=== PATIENT | female | born 1990 | race African-American/Black ===

== ENCOUNTER 2020-10-24 00:47 | Inpatient (IN) | payer BC ==
[2020-10-24] MEDS ORDERED: CLINDAMYCIN 900 MG PREMIX IVPB 900 MG/50 ML BAG IVPB ONE (02:02)
[2020-10-24] MEDS: CLINDAMYCIN 900 MG PREMIX IVPB 900 MG/50 ML BAG IVPB SCH ×3 (02:04→18:00)
[2020-10-24 02:11] LABS: BASO % 0.3 % (0-2.0); HEMATOCRIT 34.7 % (32.4-45.2); HEMOGLOBIN 11.5 GM/dL (10.7-15.3); LYMPH % 33.8 % (8-40); MCH 28.8 pg (25.7-33.7); MCHC 33.1 g/dl (32.0-36.0); MEAN CELL VOLUME 86.9 fl (80-96); MEAN PLT VOLUME 10.6 fl (7.5-11.1); MONO % 9.4 % (3.8-10.2); NEUT % 55.5 % (42.8-82.8); PLATELET COUNT 231 K/MM3 (134-434); RBC 3.99 M/mm3 (3.60-5.2); WHITE BLOOD COUNT 7.3 K/mm3 (4.0-10.0)
[2020-10-24 02:12] LABS: INR 0.97 (0.83-1.09); PROTHROMBIN TIME (PATIENT) 11.9 SEC (9.7-13.0)
[2020-10-24 02:15] LABS: ACTIVATED PTT 28.8 SECONDS (25.2-36.5)
[2020-10-24 02:18] LABS: CALCIUM 8.9 mg/dL (8.5-10.1)
[2020-10-24 02:19] LABS: BLOOD UREA NITROGEN 8.8 mg/dL (7-18)
[2020-10-24] MEDS ORDERED: PCA PUMP NR ONE (02:19)
[2020-10-24] MEDS ORDERED: FENTANYL/BUPIVACAINE/NS/PF - PCEA - 50 ML DISP.SYRIN EP ONE (02:19)
[2020-10-24 02:22] LABS: CREATININE 0.6 mg/dL (0.55-1.3)
[2020-10-24] MEDS ORDERED: OXYTOCIN 20 UNITS in 0.9% NS 20 UNIT/1,000 ML INFUS.BAG IV ONE ×2 (02:38→06:33)
[2020-10-24] MEDS ORDERED: LIDOCAINE HCL 1% PRESERVATIVE FREE - 30ML VIAL ONE (02:38)
[2020-10-24] MEDS ORDERED: BUPIVACAINE HCL/PF 0.25% (2.5MG/ML) 10 ML VIAL ONE (02:45)
[2020-10-24 02:57] LABS: SYPHILIS W/ RPR CONF NON-REACTIVE (NONREACTIVE)
[2020-10-24] MEDS ORDERED: ELECTROLYTE-148 SOLN 1,000 ML IV SCH (03:00)
[2020-10-24] MEDS ORDERED: NALOXONE HCL 0.4 MG/ML VIAL IVPUSH PRN (03:06)
[2020-10-24 03:14] LABS: HIV INTERPRETATION NEGATIVE (NEGATIVE)
[2020-10-24] MEDS ORDERED: FENTANYL/BUPIVACAINE/NS/PF - PCEA - 50 ML DISP.SYRIN EP SCH (03:15)
[2020-10-24 05:01] VITALS: BMI 39.3
[2020-10-24] MEDS ORDERED: BISACODYL 10 MG SUPP.RECT RC PRN (05:32)
[2020-10-24] MEDS ORDERED: METHYLERGONOVINE MALEATE 0.2 MG/1 ML AMP IM PRN (05:32)
[2020-10-24] MEDS ORDERED: BENZOCAINE 28 GM HEMORRHOIDAL OINTMENT TP PRN (05:32)
[2020-10-24] MEDS ORDERED: WITCH HAZEL 50% (TUCKS) 40 PAD/JAR PAD TP PRN (05:32)
[2020-10-24] MEDS ORDERED: BENZOCAINE 20% 57 GM BOTTLE TP PRN (05:32)
[2020-10-24] MEDS ORDERED: OXYTOCIN 20 UNITS in 0.9% NS 20 UNIT/1,000 ML INFUS.BAG IV SCH (05:45)
[2020-10-24] MEDS ORDERED: ACETAMINOPHEN 325 MG TABLET (FP) ONE (06:54)
[2020-10-24] MEDS: PRENATAL VITAMINS W/ FOLIC ACID TABLET (FP) PO SCH (11:28)
[2020-10-24] MEDS: ACETAMINOPHEN 325 MG TABLET (FP) PO PRN ×2 (13:12→20:13)
[2020-10-24] MEDS: IBUPROFEN 600 MG TABLET (FP) PO PRN ×2 (13:13→20:13)
[2020-10-25] MEDS: CLINDAMYCIN 900 MG PREMIX IVPB 900 MG/50 ML BAG IVPB SCH ×2 (01:25→09:02)
[2020-10-25 07:50] LABS: BASO % 0.3 % (0-2.0); HEMATOCRIT 32.6 % (32.4-45.2); HEMOGLOBIN 10.8 GM/dL (10.7-15.3); LYMPH % 29.4 % (8-40); MCH 28.6 pg (25.7-33.7); MCHC 33.1 g/dl (32.0-36.0); MEAN CELL VOLUME 86.2 fl (80-96); MEAN PLT VOLUME 9.6 fl (7.5-11.1); NEUT % 62.3 % (42.8-82.8); PLATELET COUNT 211 K/MM3 (134-434); RBC 3.78 M/mm3 (3.60-5.2); RDW 13.8 % (11.6-15.6); WHITE BLOOD COUNT 8.1 K/mm3 (4.0-10.0)
[2020-10-25] MEDS: ACETAMINOPHEN 325 MG TABLET (FP) PO PRN (09:01)
[2020-10-25] MEDS: IBUPROFEN 600 MG TABLET (FP) PO PRN (09:02)
[2020-10-25] MEDS: PRENATAL VITAMINS W/ FOLIC ACID TABLET (FP) PO SCH (09:53)
[2020-10-25] MEDS ORDERED: SENNOSIDES/DOCUSATE COMBO (SENNA PLUS) TABLET (UD) PO PRN (22:00)
[2020-10-26] MEDS: ACETAMINOPHEN 325 MG TABLET (FP) PO PRN ×2 (01:48→09:03)
[2020-10-26] MEDS: IBUPROFEN 600 MG TABLET (FP) PO PRN ×2 (01:48→09:02)
[2020-10-26] MEDS: PRENATAL VITAMINS W/ FOLIC ACID TABLET (FP) PO SCH (09:02)
[2020-10-26 11:36] VITALS: BP 122/57; PULSE 98; TEMP 98.6
== END 2020-10-26 11:00 | disposition home or self-care (01) | DRG 807 ==
LOC: JDEL 00:47 → JLDR 00:49 → J3W 07:45
PROVIDERS: ADMIT Obstetrics & Gynecology; ATTEND Obstetrics & Gynecology
PROC: 10E0XZZ Delivery of Products of Conception, External Approach (ICD-10-PCS; principal; 2020-10-24)
DX: O99.824 Streptococcus B carrier state complicating childbirth (principal); Z37.0 Single live birth; O99.214 Obesity complicating childbirth; E66.9 Obesity, unspecified; Z3A.39 39 weeks gestation of pregnancy; Z88.0 Allergy status to penicillin; Z88.2 Allergy status to sulfonamides
CPT/HCPCS: 36415; 59409; 80048; 85025; 85610; 85730; 86780; 86850; 86900; 86901; 87389; C9803; U0003; U0005